=== PATIENT | male | born 1935 | race Caucasian/White ===

== ENCOUNTER 2021-11-02 16:11 | Emergency (ER) | payer OTHER, MEDICARE ==
[~2021-11-02] VITALS: Ht 170.2 cm; Wt 70.5 kg
== END 2021-11-02 17:15 | disposition home or self-care (01) ==
LOC: ER 16:14
DX: K43.9 Ventral hernia without obstruction or gangrene (principal); I48.91 Unspecified atrial fibrillation; I10 Essential (primary) hypertension; K21.9 Gastro-esophageal reflux disease without esophagitis
CPT/HCPCS: 99284

== ENCOUNTER 2022-02-12 07:25 | Day surgery (SDC) | payer OTHER ==
[2022-02-12] VITALS (13 sets, daily range): BP systolic 125–173; BP diastolic 85–126
[~2022-02-12] VITALS: Ht 172.7 cm; Wt 65.0 kg
[~2022-02-12 07:25] MED LIST: ACET325T55 PO; APIX5TAB3 PO; ASCO500T19; BUDE10.2; BUPIVAcaine/PF 2.5 mg/ml (0.25%) 30ml vial ONE; CARV6.253 PO; DOCU100C40 PO; DOCUMENT DATE & TIME OF BETA-BLOCKER PO ONE; FERR325T35 PO; FINA5TAB11 PO; FLO0.4C; HYDR-4069 PO; MELA1TAB52 PO; MIRT-88 PO; OMEP20CA16 PO; SIMV-45 PO; ceFAZolin inj. 2,000 MG in dextrose 5%-water 100 ML IV ONE; famotidine 20mg tablet PO ONE; ringers solution, lacted 1,000 ML IV SCH
[2022-02-12] MEDS ORDERED: midazolam 1 mg/ML 2ml injection ONE (08:49)
[2022-02-12] MEDS ORDERED: fentaNYL /PF 50mcg/ml 5ml ampule ONE (08:50)
[2022-02-12] MEDS ORDERED: bacitracin 15gm ointment TP ONE (09:00)
[2022-02-12] MEDS ORDERED: BUPIVAcaine/PF 2.5 mg/ml (0.25%) 30ml vial ONE ×2 (09:00→10:09)
[2022-02-12] MEDS ORDERED: sevoflurane 250ml liquid IH ONE (09:46)
[2022-02-12] MEDS ORDERED: propofol inj 20 ML IV ONE (10:04)
[2022-02-12] MEDS ORDERED: rocuronium 10mg/ml inj IV ONE (10:04)
[2022-02-12] MEDS ORDERED: LIDOcaine 2% (20mg/ml) 5ml vial ONE (10:04)
[2022-02-12] MEDS ORDERED: BUPIVACAINE liposomal/PF 13.3 MG/ML vial IM ONE (10:09)
[2022-02-12] MEDS ORDERED: ondansetron/PF 4mg/2ml inj IV PRN (10:20)
[2022-02-12] MEDS ORDERED: morphine 2 MG/ML inj. syringe IV PRN (10:20)
[2022-02-12] MEDS ORDERED: ringers solution, lacted 1,000 ML IV SCH (10:20)
[2022-02-12] MEDS ORDERED: proCHLORperazine 10 MG/2 ml inj IV PRN (10:20)
[2022-02-12] MEDS ORDERED: meperidine/PF 25mg/ml syringe IV PRN ×3 (10:20)
[2022-02-12] MEDS ORDERED: labetalol 20mg/4ml (5mg/ml) syringe IV PRN (10:20)
[2022-02-12] MEDS ORDERED: acetaminophen 1,000mg/100ml IV 100 ML IV PRN (10:20)
[2022-02-12] MEDS ORDERED: morphine 4 MG/ML inj SYRINge IV PRN (10:20)
[2022-02-12] MEDS ORDERED: dexamethasone sod phosphate 4mg/ml inj. ONE (10:40)
[2022-02-12] MEDS ORDERED: ondansetron/PF 4mg/2ml inj ONE (10:40)
[2022-02-12] MEDS ORDERED: ePHEDrine 50MG/ML INJ. ONE (10:50)
[2022-02-12] MEDS ORDERED: 0.9 % SODIUM CHLORIDE 10 ML VIAL ONE (10:50)
[2022-02-12] MEDS ORDERED: sugammadex 200mg/2ml injection IV ONE (11:10)
--- NOTE | 2022-02-12 11:20 | NUR ---
Received from OR via [facility] , accompanied by Anesthesiologist and report given by JOHN Anesthesiologist. PATIENT WAKING UP, DENIES PAIN, V/S WNL, PIV 20G R WRIST, DERMABONDED SITE CLOSED C/D/I TO ABDOMEN. Addendum: 02/12/22 at 1137 by Hernán Kwon RN Amended: Links added.
[2022-02-12] MEDS: hydrALAZINE 20mg/ml inj. IV PRN ×3 (11:23→11:55)
--- NOTE | 2022-02-12 12:35 | NUR ---
ALL DISCHARGE CRITERIA HAS BEEN MET. VSS, PAIN AT A TOLERABLE LEVEL, ABLE TO SAFELY AMBULATE AND TRANSFER SELF. IV TAKEN OUT WITHOUT ANY COMPLICATIONS. ALL DISCHARGE INSTRUCTIONS COVERED WITH PATIENT AND TY ([place] CAREGIVER) AND ALL QUESTIONS ANSWERED. PATIENT TAKEN OUT VIA WHEELCHAIR WITH ALL BELONGINGS TO PERSONAL VEHICLE WHERE [facility] [place] [facility] Addendum: 02/12/22 at 1251 by Hernán Kwon RN Amended: Links added.
== END 2022-02-12 12:35 ==
LOC: PAS 07:25
PROVIDERS: ATTEND Surgery
DX: K43.9 Ventral hernia without obstruction or gangrene (principal); I10 Essential (primary) hypertension; I48.91 Unspecified atrial fibrillation; F32.9 Major depressive disorder, single episode, unspecified; K21.9 Gastro-esophageal reflux disease without esophagitis; Z79.899 Other long term (current) drug therapy; Z98.890 Other specified postprocedural states
CPT/HCPCS: 49570; 82948; C9290; J0360; J0690; J1100; J2250; J2405; J2704; J3010; J3490; J7030; J7060; J7120; Z7506; Z7508; Z7512; A4215; A4618; A7000

== ENCOUNTER 2022-08-17 11:20 | Emergency (ER) | payer OTHER, MEDICARE ==
[~2022-08-17] VITALS: Ht 170.2 cm; Wt 64.0 kg
[~2022-08-17 11:20] MED LIST changes: -BUPIVAcaine/PF 2.5 mg/ml (0.25%) 30ml vial ONE; -DOCUMENT DATE & TIME OF BETA-BLOCKER PO ONE; -ceFAZolin inj. 2,000 MG in dextrose 5%-water 100 ML IV ONE; -famotidine 20mg tablet PO ONE; -ringers solution, lacted 1,000 ML IV SCH
--- NOTE | 2022-08-17 11:46 | NUR ---
Ecchymosis marked with permanent marker to monitor for changes
--- NOTE | 2022-08-17 11:50 | NUR ---
Right pedal and right postibial present on doppler
[2022-08-17 13:02] LABS: BASOPHILS % (AUTO) 0.7 % (0-1); EOSINOPHILS # (AUTO) 0.1 X10'3 (0-0.9); EOSINOPHILS % (AUTO) 2.1 % (0-6); HEMATOCRIT 36.3 % (42.0-52.0); HEMOGLOBIN 11.9 g/dl (14.0-17.9); LYMPHOCYTES # (AUTO) 0.4 X10'3 (1.1-4.8); LYMPHOCYTES % (AUTO) 7.1 % (21-51); MEAN CORPUSCULAR HEMOGLOBIN 32.6 PG (27.0-31.0); MEAN CORPUSCULAR HGB CONC 32.7 g/dL (33.0-36.5); MEAN CORPUSCULAR VOLUME 99.7 FL (78-98); MEAN PLATELET VOLUME 9.2 FL (7.4-10.4); MONOCYTES # (AUTO) 0.6 X10'3 (0-0.9); MONOCYTES % (AUTO) 9.9 % (2-12); NEUTROPHILS # (AUTO) 5.1 X10'3 (1.8-7.7); NEUTROPHILS % (AUTO) 80.2 % (42-75); PLATELET COUNT 120 X10'3 (140-440); RED BLOOD COUNT 3.64 X10'6 (4.70-6.10); RED CELL DISTRIBUTION WIDTH 15.8 % (11.5-14.5); WHITE BLOOD COUNT 6.3 X10'3 (4.5-11.0)
--- NOTE | 2022-08-17 13:28 | NUR ---
Went to [place]
[2022-08-17 13:30] LABS: ALANINE AMINOTRANSFERASE 19 U/L (12-78); ALBUMIN 3.5 G/DL (3.4-5.0); ALBUMIN/GLOBULIN RATIO 1.3 (1.1-1.5); ALKALINE PHOSPHATASE 87 IU/L (46-116); ANION GAP 5 (8-16); ASPARTATE AMINO TRANSFERASE 33 U/L (10-37); BILIRUBIN,TOTAL 1.2 MG/DL (0.1-1.0); BLOOD UREA NITROGEN 28 MG/DL (7-18); BUN/CREATININE RATIO 20.7 (5.4-32.0); CALCIUM 10.1 MG/DL (8.5-10.1); CHLORIDE 106 MMOL/L (99-107); CREATININE 1.35 MG/DL (0.60-1.10); GLUCOSE 89 MG/DL (70-104); SODIUM 139 MMOL/L (135-145); TOTAL CARBON DIOXIDE 27.6 MMOL/L (24-32); TOTAL PROTEIN 6.3 G/DL (6.4-8.2); eGFR 50 ML/MIN
[2022-08-17 14:06] LABS: CLARITY,URINE CLEAR (Clear); COLOR,URINE YELLOW (Yellow); GLUCOSE, URINE NEGATIVE (Neg); KETONES,URINE NEGATIVE (Neg); LEUKOCYTE ESTERASE ,URINE TRACE (Neg); NITRITES, URINE NEGATIVE (Neg); OCCULT BLOOD,URINE NEGATIVE (Neg); PH,URINE 7.5 (4.8-8.0); PROTEIN,URINE NEGATIVE (Neg)
[2022-08-17 14:08] LABS: UA COLLECTION TYPE CLN CATCH MIDSTREAM
[2022-08-17 14:12] LABS: STARCH,URINE FEW /HPF (NEGATIVE)
[2022-08-17 14:14] LABS: BACTERIA,URINE FEW /HPF (Neg); MUCUS STRANDS FEW /LPF (Neg); RBC,URINE 0-2 /HPF (0-2); SQUAMOUS EPITHELIAL CELL,UR FEW /LPF (FEW); WBC,URINE 0-4 /HPF (0-4)
--- NOTE | 2022-08-17 17:04 | NUR ---
I called [place] ([facility] requesting to call me back regarding discharge transportation service.
--- NOTE | 2022-08-17 17:27 | NUR ---
[facility] Report given to her and she said she will make a transportation arrangement.
[2022-08-17 17:39] VITALS: BP 163/100
== END 2022-08-17 18:46 ==
LOC: ER 11:20
DX: R60.0 Localized edema (principal); K21.9 Gastro-esophageal reflux disease without esophagitis; I11.9 Hypertensive heart disease without heart failure; Z79.899 Other long term (current) drug therapy; Z79.1 Long term (current) use of non-steroidal anti-inflammatories (NSAID)
CPT/HCPCS: 36415; 70450; 73502; 73630; 80053; 81001; 85025; 85610; 93971; 99285

== ENCOUNTER 2023-02-03 15:17 | Emergency (ER) | payer OTHER, MEDICARE ==
[~2023-02-03] VITALS: Ht 167.6 cm; Wt 68.1 kg
[2023-02-03 15:33] VITALS: TEMP 98.1
[2023-02-03 17:07] VITALS: BP 151/99; PULSE 74; RESP 18; O2SAT 97
--- NOTE | 2023-02-03 17:15 | NUR ---
CORRECTION CALLED TO ARRANGE TRANSPORTATION BACK TO FACILITY. NO ANSWER.
--- NOTE | 2023-02-03 20:13 | NUR ---
[facility] CALLED. THEY WILL CALL BACK WHEN CHARGE NURSE IS NOTIFIED. PT STABLE AND RESTING. PT WAS INFORMED THAT WE ARE WORKING ON TRANSPORTATION.
--- NOTE | 2023-02-03 20:18 | NUR ---
CALL BACK FROM [facility], THEY WILL CALL [facility] FOR TRANSPORTATION.
--- NOTE | 2023-02-03 20:54 | NUR ---
[facility] (POWER OF [employer]ALL [employer] MACHINE TENDER) CALLED TO CHECK ON PT. JOSELYN TY [phone]
== END 2023-02-03 21:22 | disposition home or self-care (01) ==
LOC: ER 15:17
DX: S80.12XA Contusion of left lower leg, initial encounter (principal); E78.00 Pure hypercholesterolemia, unspecified; I10 Essential (primary) hypertension; J44.9 Chronic obstructive pulmonary disease, unspecified; Z79.899 Other long term (current) drug therapy; Z87.891 Personal history of nicotine dependence; W19.XXXA Unspecified fall, initial encounter; Y93.89 Activity, other specified; Y92.89 Other specified places as the place of occurrence of the external cause; Y99.8 Other external cause status
CPT/HCPCS: 73564; 73590; 73700; 99284

== ENCOUNTER 2023-02-06 10:56 | Emergency (ER) | payer OTHER, MEDICARE ==
[~2023-02-06] VITALS: Ht 165.1 cm; Wt 68.1 kg
[2023-02-06] MEDS ORDERED: vancomycin/NS 1 GM ADD-VANTAGE 250 ML IV ONE (11:40)
[2023-02-06] MEDS ORDERED: piperacillin/tazo 3.375gm/50ml 50 ML IV ONE (11:40)
[2023-02-06 11:59] VITALS: TEMP 98.9
[2023-02-06 12:37] LABS: BASOPHILS % (AUTO) 0.3 % (0-1); EOSINOPHILS % (AUTO) 0.3 % (0-6); HEMATOCRIT 29.5 % (42.0-52.0); HEMOGLOBIN 9.7 g/dl (14.0-17.9); LYMPHOCYTES # (AUTO) 0.3 X10'3 (1.1-4.8); LYMPHOCYTES % (AUTO) 3.2 % (21-51); MEAN CORPUSCULAR HEMOGLOBIN 33.1 PG (27.0-31.0); MEAN CORPUSCULAR VOLUME 100.5 FL (78-98); MEAN PLATELET VOLUME 9.6 FL (7.4-10.4); MONOCYTES # (AUTO) 0.6 X10'3 (0-0.9); MONOCYTES % (AUTO) 5.9 % (2-12); NEUTROPHILS # (AUTO) 8.7 X10'3 (1.8-7.7); NEUTROPHILS % (AUTO) 90.3 % (42-75); PLATELET COUNT 114 X10'3 (140-440); RED BLOOD COUNT 2.94 X10'6 (4.70-6.10); RED CELL DISTRIBUTION WIDTH 15.2 % (11.5-14.5); WHITE BLOOD COUNT 9.6 X10'3 (4.5-11.0)
[2023-02-06 12:55] LABS: ALANINE AMINOTRANSFERASE 15 U/L (12-78); ALBUMIN 2.8 G/DL (3.4-5.0); ALKALINE PHOSPHATASE 86 IU/L (46-116); ANION GAP 7 (8-16); ASPARTATE AMINO TRANSFERASE 18 U/L (10-37); BILIRUBIN,TOTAL 1.1 MG/DL (0.1-1.0); BLOOD UREA NITROGEN 26 MG/DL (7-18); CALCIUM 9.5 MG/DL (8.5-10.1); CHLORIDE 106 MMOL/L (99-107); GLUCOSE 135 MG/DL (70-104); MAGNESIUM 1.7 MG/DL (1.5-2.4); POTASSIUM 4.6 MMOL/L (3.5-5.1); SODIUM 138 MMOL/L (135-145); TOTAL CARBON DIOXIDE 25.2 MMOL/L (24-32); TOTAL PROTEIN 5.5 G/DL (6.4-8.2); eCRCL 35 ML/MIN; eGFR 52 ML/MIN
[2023-02-06 16:10] VITALS: BP 124/77; PULSE 84; RESP 18; O2SAT 97
== END 2023-02-06 16:12 | disposition home or self-care (01) ==
LOC: ER 10:57
DX: S80.12XA Contusion of left lower leg, initial encounter (principal); E78.00 Pure hypercholesterolemia, unspecified; I10 Essential (primary) hypertension; J44.9 Chronic obstructive pulmonary disease, unspecified; K21.9 Gastro-esophageal reflux disease without esophagitis; Z79.899 Other long term (current) drug therapy; W19.XXXA Unspecified fall, initial encounter; Y93.89 Activity, other specified; Y92.89 Other specified places as the place of occurrence of the external cause; Y99.8 Other external cause status
CPT/HCPCS: 36415; 71045; 73590; 80053; 83605; 83735; 84145; 85025; 87040; 93005; 96365; 96366; 96367; 99285; J2543; J3370; J7030

== ENCOUNTER 2024-06-15 06:07 | Inpatient (IN) | payer MEDICARE, OTHER ==
[~2024-06-15] VITALS: Ht 175.3 cm; Wt 55.5 kg
[~2024-06-15 06:07] MED LIST changes: -HYDR-4069 PO; +HYDR25TA90 PO
[2024-06-15] MEDS: normal saline 1000ML IV soln IVB ONE ×2 (06:56→09:44)
[2024-06-15] MEDS: CefTRIAXone 2gm/D5W 50ml BAG 50 ML IV ONE (06:59)
[2024-06-15 07:42] LABS: BASOPHILS % (AUTO) 0.3 % (0-1); EOSINOPHILS # (AUTO) 0.1 X10'3 (0-0.9); HEMATOCRIT 44.7 % (42.0-52.0); HEMOGLOBIN 14.2 g/dl (14.0-17.9); LYMPHOCYTES # (AUTO) 0.4 X10'3 (1.1-4.8); MEAN CORPUSCULAR HGB CONC 31.9 g/dL (33.0-36.5); MEAN CORPUSCULAR VOLUME 100.5 FL (78-98); MEAN PLATELET VOLUME 8.5 FL (7.4-10.4); MONOCYTES # (AUTO) 0.5 X10'3 (0-0.9); MONOCYTES % (AUTO) 4.9 % (2-12); NEUTROPHILS # (AUTO) 8.8 X10'3 (1.8-7.7); NEUTROPHILS % (AUTO) 89.8 % (42-75); PLATELET COUNT 173 X10'3 (140-440); RED BLOOD COUNT 4.45 X10'6 (4.70-6.10); RED CELL DISTRIBUTION WIDTH 15.9 % (11.5-14.5); WHITE BLOOD COUNT 9.8 X10'3 (4.5-11.0)
[2024-06-15 07:58] LABS: BILIRUBIN,URINE NEGATIVE (Neg); CLARITY,URINE CLEAR (Clear); COLOR,URINE YELLOW (Yellow); GLUCOSE, URINE NEGATIVE (Neg); KETONES,URINE NEGATIVE (Neg); LEUKOCYTE ESTERASE ,URINE NEGATIVE (Neg); NITRITES, URINE NEGATIVE (Neg); OCCULT BLOOD,URINE TRACE-INTACT (Neg); PH,URINE 5.5 (4.8-8.0); PROTEIN,URINE TRACE mg/dl (Neg)
[2024-06-15] MEDS: vancomycin/NS 1 GM ADD-VANTAGE 250 ML IV ONE (07:58)
[2024-06-15 08:02] LABS: UA COLLECTION TYPE FOLEY CATH
[2024-06-15 08:19] LABS: BACTERIA,URINE NONE SEEN /HPF (Neg); SQUAMOUS EPITHELIAL CELL,UR FEW /LPF (FEW); WBC,URINE 0-4 /HPF (0-4)
[2024-06-15 08:30] LABS: C-REACTIVE PROTEIN 3.13 MG/DL (0.0-0.5); CREATINE KINASE 27 U/L (39-308); CREATINE KINASE MB 1.3 ng/ml (0.3-3.6); LIPASE 17 U/L (16-77); MAGNESIUM 2.1 MG/DL (1.5-2.4)
[2024-06-15 09:24] LABS: ALANINE AMINOTRANSFERASE 12 U/L (12-78); ALBUMIN 2.2 G/DL (3.4-5.0); ALBUMIN/GLOBULIN RATIO 0.5 (1.1-1.5); ALKALINE PHOSPHATASE 159 IU/L (46-116); ANION GAP 1 (8-16); ASPARTATE AMINO TRANSFERASE 13 U/L (10-37); BILIRUBIN,TOTAL 0.5 MG/DL (0.1-1.0); BLOOD UREA NITROGEN 19 MG/DL (7-18); BUN/CREATININE RATIO 19.8 (10.0-20.0); CALCIUM 10.5 MG/DL (8.5-10.1); CHLORIDE 105 MMOL/L (99-107); CREATININE 0.96 MG/DL (0.60-1.10); POTASSIUM 4.8 MMOL/L (3.5-5.1); SODIUM 142 MMOL/L (135-145); TOTAL CARBON DIOXIDE 35.8 MMOL/L (24-32); TOTAL PROTEIN 6.9 G/DL (6.4-8.2); eCRCL 42 ML/MIN; eGFR 74 ML/MIN
[2024-06-15 09:27] LABS: GLUCOSE 127 MG/DL (70-104)
[2024-06-15] MEDS: normal saline 1000ml 1,000 ML IVB ONE (09:45)
[2024-06-15] MEDS ORDERED: magnesium sulf-water 4G/100mL 100 ML IV PRN (10:35)
[2024-06-15] MEDS ORDERED: potassium Cl 40MEQ/1/2NS 520ml 520 ML IV PRN (10:35)
[2024-06-15] MEDS ORDERED: morphine 2 MG/ML inj. syringe IV PRN (10:35)
[2024-06-15] MEDS ORDERED: magnesium hydroxide 30ml (MOM) UD suspension PO PRN (10:35)
[2024-06-15] MEDS ORDERED: acetaminophen 325mg tablet PO PRN (10:35)
[2024-06-15] MEDS ORDERED: normal saline 1000ml 1,000 ML IV SCH (10:35)
[2024-06-15] MEDS ORDERED: magnesium sulf-water 2g/50mL 50 ML IV PRN (10:35)
[2024-06-15] MEDS ORDERED: magnesium Cl slow-release 64mg tablet PO PRN (10:35)
[2024-06-15] MEDS ORDERED: potassium Cl 20 mEq SR tablet PO PRN ×2 (10:35)
[2024-06-15] MEDS ORDERED: mag hydrox/Alum hydrox/simeth 30ml oral suspension PO PRN (10:35)
[2024-06-15] MEDS ORDERED: CefTRIAXone/D5W-Rocephin 1gm 50 ML IV SCH (10:45)
[2024-06-15] MEDS: ipratropium/albuterol 3ml nebule NEB SCH (11:00)
[2024-06-15] MEDS ORDERED: morphine 4 MG/ML inj SYRINge IV PRN (11:30)
[2024-06-15] MEDS ORDERED: LORazepam 2 mg/ml vial IV PRN (11:30)
[2024-06-15] MEDS ORDERED: LORazepam 1 MG tablet PO PRN (11:30)
[2024-06-15] MEDS: ondansetron/PF 4mg/2ml inj IV PRN (12:28)
[2024-06-15] MEDS: morphine 2 MG/ML inj. syringe IV PRN (12:29)
[2024-06-15] MEDS ORDERED: morphine 10mg/0.5ml (conc. morphine) oral syringe PO PRN (14:40)
[2024-06-15] MEDS: scopolamine 1MG/72H patch 1 PATCH PATCH.TD.3 TD SCH (15:01)
[2024-06-15] MEDS: azithromycin 250mg tablet PO ONE (15:01)
[2024-06-15] MEDS: methylPREDNISolone sod succ 125mg/2ml vial IV ONE (15:01)
[2024-06-15 15:57] VITALS: BP 117/76; PULSE 87; RESP 24; TEMP 97.5; O2SAT 89
[2024-06-15 18:00] VITALS: BP 138/89; PULSE 86; RESP 12; TEMP 97.5; O2SAT 88
[2024-06-15 20:00] VITALS: RESP 12; O2SAT 91
[2024-06-15] MEDS ORDERED: K and/or MAG REPLACEMENT MC SCH (20:00)
[2024-06-15] MEDS ORDERED: methylPREDNISolone sod succ 125mg/2ml vial IV SCH (20:00)
[2024-06-15] MEDS ORDERED: docusate sod 100mg capsule PO SCH (20:00)
== END 2024-06-16 00:40 | DRG 871 ==
LOC: ER 06:07 → UNDOADMIN 10:40 → ED HOLD 10:40 → SUR 3N 14:24
PROVIDERS: ADMIT Internal Medicine; ATTEND Internal Medicine
DX: A41.9 Sepsis, unspecified organism (principal); G93.41 Metabolic encephalopathy; J96.01 Acute respiratory failure with hypoxia; R65.21 Severe sepsis with septic shock; J69.0 Pneumonitis due to inhalation of food and vomit; J18.9 Pneumonia, unspecified organism; J44.0 Chronic obstructive pulmonary disease with (acute) lower respiratory infection; Z20.822 Contact with and (suspected) exposure to COVID-19; E78.00 Pure hypercholesterolemia, unspecified; Z66 Do not resuscitate; F32.A Depression, unspecified; K21.9 Gastro-esophageal reflux disease without esophagitis; I10 Essential (primary) hypertension; I48.91 Unspecified atrial fibrillation; N40.0 Benign prostatic hyperplasia without lower urinary tract symptoms; Z79.01 Long term (current) use of anticoagulants; Z79.899 Other long term (current) drug therapy; Z51.5 Encounter for palliative care
CPT/HCPCS: 36415; 71045; 80053; 81001; 82550; 82553; 83605; 83690; 83735; 83874; 84145; 84484; 85025; 86140; 87040; 87081; 87502; 87503; 87811; 93005; 99291; A4615; A6213; A6253; C1758; G0378; J0696; J2270; J2405; J3370; J7030